=== PATIENT | female | born 1955 | race Caucasian/White ===

== ENCOUNTER 2024-06-17 10:47 | Outpatient (CLI) | payer MEDICARE, SELFPAY ==
[2024-06-17 11:46] LABS: Anion Gap 6 mmol/L (4-12); Blood Urea Nitrogen 13 mg/dL (7-17); Calcium 8.9 mg/dL (8.4-10.2); Carbon Dioxide 32 mmol/L (22-30); Chloride 102 mmol/L (98-107); Estimated Glomerular Filt Rate > 60; Glucose 173 mg/dL (65-110); Potassium 4.5 mmol/L (3.4-5.0); Sodium 140 mmol/L (137-145)
[2024-06-17 11:48] LABS: Prothrombin Time 31.9 Seconds (11.1-14.7)
[2024-06-17 11:49] LABS: Partial Thromboplastin Time 42.9 Seconds (22.3-36.8)
[2024-06-17 12:52] LABS: Digoxin 1.5 ng/mL (0.8-2.0)
== END 2024-06-17 10:48 | disposition home or self-care (01) ==
PROVIDERS: Anesthesiology; Visit Provider Urology
DX: Z51.81 Encounter for therapeutic drug level monitoring (principal); E11.9 Type 2 diabetes mellitus without complications; Z79.01 Long term (current) use of anticoagulants; R32 Unspecified urinary incontinence; Z01.818 Encounter for other preprocedural examination; Z79.899 Other long term (current) drug therapy
CPT/HCPCS: 36415; 80048; 80162; 85610; 85730; 87086

== ENCOUNTER 2024-06-26 03:02 | Day surgery (SDC) | payer MEDICARE, SELFPAY ==
--- NOTE | 2024-06-15 14:19 | PC.NURSE ---
Report to the Outpatient Waiting Room, entrance under the green pavilion located off [facility], at time __8:30 AM on date _06/26/24 . Planned Procedure Time: _10:30 AM .? Time changes happen often and if your time is changed the preop area will call you the afternoon before. - You and your visitor will be asked to self-screen and do not enter if you have any COVID symptoms. Please call surgeon if you need to reschedule. - A mask is optional within the hospital at this time. Patients may have clear liquids (water, carbonated beverages, clear teas, apple juice) until 3 hours prior to surgery (7:30 AM)with a maximum of 20 ounces. - No food from midnight until time of surgery and no smoking - Infants may have breast milk until 4 hours before surgery, formula 6 hours prior to surgery. - Children will be allowed to drink immediately following surgery.? If applicable, please bring a bottle or sippy cup to assist with drinking. Juice, water, soda, and popsicles are readily available.? For infants on formula, please bring formula the day of surgery.? Pacifiers are allowed. Take only the following medications with a SIP of water on the morning of surgery: __CITALOPRAM,DIGOXIN,EYE DROP,LEVOTHYROXINE, DO NOT STOP ANY OF YOUR OTHER PRESCRIPTION MEDICATIONS PRIOR TO SURGERY EXCEPT THE FOLLOWING Medications to discontinue per physician ___PT STATES HOLD WARFARIN 5 DAYS PRE OP PER DR SANDOVAL LAST DOSE 07/21/24 HOLD ALL VITAMINS AND SUPPLEMENT 7 DAYS PRE OP PER DR SINGH LAST DOSE 06/18/24 Please no make-up, nail croatian, hairspray, perfume, deodorant, or body powder the day of surgery.? No jewelry (including any body piercings) or valuables the day of surgery, leave them at home.? Please take a shower or bath the night before, or the morning of, surgery with an antibacterial soap.? Wear comfortable, loose fitting clothing.? Children are encouraged to wear pajamas. - Jewelry must be removed prior to entering the operating room.? Rings and piercings that are not removed may be cut off. - The hospital will not accept responsibility for valuables.? - Please leave all valuables, including medications, at home the day of surgery. If you are going home after surgery, a licensed lifter/driver must drive you home.? - NO public transportation without another adult if you receive anesthesia. - We recommend that an adult stay with you for 24 hours following discharge. - We also recommend that you do not drive, make important decision, drink alcoholic beverages, or take any drugs that were not prescribed by your health care provider for at least 24 hours after your discharge time. Follow any additional instructions given to you from your surgeon. Telephone instructions given to _PATIENT and asked if any additional questions and then verbalized understanding. Patient advised to call surgeon office or pre surgery nurse liaison [phone] if any additional questions.
[2024-06-15 14:37] VITALS: BMI 38.7
--- NOTE | 2024-06-20 16:03 | PM.IMHP ---
H&P: HPI History of Present Illness Date/Time: 06/20/24 16:03 Chief Complaint: ISD Narrative: mixed incontinence. Desires treatment for SILVIA 2/2 ISD Review of Systems Review of Systems: All systems reviewed & are unremarkable except as noted in HPI and below PMFSH Social History Social History Smoking packs per day: 2 Smoking cigarettes per day: 40.0 Years smoked: 25 Smoking pack-years: 50.00 Smoking status: Former smoker Tobacco type: cigarettes Smoking end date: 08/26/04 Living arrangements: with family Spiritual care concerns: No Meds Home Medications and Allergies Home Medications Medication Instructions Recorded Confirmed Type citalopram 20 mg tablet 20 mg PO QAM 06/15/24 06/15/24 History digoxin 250 mcg (0.25 mg) tablet 250 mcg PO DAILY 06/15/24 06/15/24 History dorzolamide 22.3 mg-timolol 6.8 1 drp RIGHT EYE BID 06/15/24 06/15/24 History mg/mL eye drops furosemide 20 mg tablet 30 mg PO DAILY 06/15/24 06/15/24 History insulin glargine 100 unit/mL (3 60 unit subcut HS 06/15/24 06/15/24 History mL) subcutaneous pen (Lantus Solostar U-100 Insulin) insulin lispro 100 unit/mL 24 unit subcut TID 06/15/24 06/15/24 History subcutaneous pen (Admelog SoloStar U-100 Insulin lispro) lactobacillus combination no.8 3 3 cell PO DAILY 06/15/24 06/15/24 History billion cell capsule levothyroxine 50 mcg tablet 50 mcg PO DAILY 06/15/24 06/15/24 History losartan 25 mg tablet 25 mg PO HS 06/15/24 06/15/24 History magnesium oxide 400 mg PO DAILY 06/15/24 06/15/24 History metoprolol succinate 50 mg 150 mg PO QPM 06/15/24 06/15/24 History tablet,extended release 24 hr multivitamin (Daily Multi-Vitamin 1 tablet PO DAILY 06/15/24 06/15/24 History tablet) pantoprazole 40 mg tablet,delayed 40 mg PO DAILY 06/15/24 06/15/24 History release potassium 99 mg tablet 99 mg PO DAILY 06/15/24 06/15/24 History potassium chloride 10 mEq 10 meq PO DAILY 06/15/24 06/15/24 History capsule,extended release rosuvastatin 10 mg tablet 10 mg PO DAILY 06/15/24 06/15/24 History valacyclovir 1 gram tablet 1,000 mg PO DAILY 06/15/24 06/15/24 History vibegron 75 mg tablet (Gemtesa) 75 mg PO DAILY 06/15/24 06/15/24 History vitamin A-vitamin C-vit E-min 1 tablet PO DAILY 06/15/24 06/15/24 History tablet warfarin 3 mg tablet 3.5 mg PO QPM 06/15/24 06/15/24 History Allergies Allergy/AdvReac Type Severity Reaction Status Date / Time hydroxychloroquine Allergy Severe Hives Verified 06/15/24 13:56 [From Plaquenil] ciprofloxacin [From Cipro] Allergy Hives Verified 06/15/24 13:55 cyclosporine [From Restasis] Allergy Other Verified 06/15/24 13:59 dulaglutide [From Trulicity] Allergy Diarrhea Verified 06/15/24 13:58 metformin Allergy Diarrhea Verified 06/15/24 13:58 minocycline Allergy Diarrhea Verified 06/15/24 13:58 Sulfa (Sulfonamide Allergy Hives Verified 06/15/24 13:55 Antibiotics) Exam Narrative: NAD A+O x3 normal breathing Assessment and Plan Assessment and plan (1) Intrinsic sphincter deficiency (ISD): Code(s): N36.42 - Intrinsic sphincter deficiency (ISD) Status: Acute Assessment and Plan: cysto/bulking agent
--- NOTE | 2024-06-26 04:48 | WPDHPUPDATE1 ---
History and Physical Update Update Date/Time: 06/26/24 04:48 History and Physical has been reviewed, including an updated exam of the patient. There are NO changes in the patient's condition. Risks, benefits, and alternatives have been discussed and questions answered. Patient agrees to proceed with procedure.
[2024-06-26 08:35] VITALS: BP 149/55; PULSE 55; RESP 18; TEMP 36.2; O2SAT 97
[2024-06-26 08:52] LABS: Glucose Point of Care 118 mg/dl (65-105)
[2024-06-26 09:10] VITALS: BMI 38.0
[2024-06-26] MEDS: LACTATED RINGERS 1,000 ML 30 ML IV CONT (09:11)
[2024-06-26 09:21] LABS: INR 1.3; Prothrombin Time 16.3 Seconds (11.1-14.7)
[2024-06-26 09:22] LABS: Partial Thromboplastin Time 31.5 Seconds (22.3-36.8)
--- NOTE | 2024-06-26 09:39 | WPDANESEPPF ---
Anes - Initial Pre Proc Eval Procedure: Operation Date: 06/26/24 10:30 Proposed Procedures p Cystoscopy, Injection Bulking Agent - Nicholas Cam MD Date/Time: 06/26/24 09:39 Surgeon: Nicholas Cam MD Pre Op Diagnosis: Type 2 diabetes mellitus without complications Patient Data Age: 69 Gender: F Height: 1.68 m Weight: 106.7 kg Last Vital Signs Temp 36.2 C L 06/26/24 08:35 Pulse 55 L 06/26/24 08:35 Resp 18 06/26/24 08:35 BP 149/55 H 06/26/24 08:35 Pulse Ox 97 06/26/24 08:35 Allergies Allergy/AdvReac Type Severity Reaction Status Date / Time hydroxychloroquine Allergy Severe Hives Verified 06/26/24 08:42 [From Plaquenil] ciprofloxacin [From Cipro] Allergy Hives Verified 06/26/24 08:42 cyclosporine [From Restasis] Allergy Other Verified 06/26/24 08:42 dulaglutide [From Trulicity] Allergy Diarrhea Verified 06/26/24 08:42 metformin Allergy Diarrhea Verified 06/26/24 08:42 minocycline Allergy Diarrhea Verified 06/26/24 08:42 Sulfa (Sulfonamide Allergy Hives Verified 06/26/24 08:42 Antibiotics) Home Medications Medication Instructions Recorded Confirmed Type citalopram 20 mg tablet 20 mg PO QAM 06/15/24 06/15/24 History digoxin 250 mcg (0.25 mg) tablet 250 mcg PO DAILY 06/15/24 06/15/24 History dorzolamide 22.3 mg-timolol 6.8 1 drp RIGHT EYE BID 06/15/24 06/15/24 History mg/mL eye drops furosemide 20 mg tablet 30 mg PO DAILY 06/15/24 06/15/24 History insulin glargine 100 unit/mL (3 60 unit subcut HS 06/15/24 06/15/24 History mL) subcutaneous pen (Lantus Solostar U-100 Insulin) insulin lispro 100 unit/mL 24 unit subcut TID 06/15/24 06/15/24 History subcutaneous pen (Admelog SoloStar U-100 Insulin lispro) lactobacillus combination no.8 3 3 cell PO DAILY 06/15/24 06/15/24 History billion cell capsule levothyroxine 50 mcg tablet 50 mcg PO DAILY 06/15/24 06/15/24 History losartan 25 mg tablet 25 mg PO HS 06/15/24 06/15/24 History magnesium oxide 400 mg PO DAILY 06/15/24 06/15/24 History metoprolol succinate 50 mg 150 mg PO QPM 06/15/24 06/15/24 History tablet,extended release 24 hr multivitamin (Daily Multi-Vitamin 1 tablet PO DAILY 06/15/24 06/15/24 History tablet) pantoprazole 40 mg tablet,delayed 40 mg PO DAILY 06/15/24 06/15/24 History release potassium 99 mg tablet 99 mg PO DAILY 06/15/24 06/15/24 History potassium chloride 10 mEq 10 meq PO DAILY 06/15/24 06/15/24 History capsule,extended release rosuvastatin 10 mg tablet 10 mg PO DAILY 06/15/24 06/15/24 History valacyclovir 1 gram tablet 1,000 mg PO DAILY 06/15/24 06/15/24 History vibegron 75 mg tablet (Gemtesa) 75 mg PO DAILY 06/15/24 06/15/24 History vitamin A-vitamin C-vit E-min 1 tablet PO DAILY 06/15/24 06/15/24 History tablet warfarin 3 mg tablet 3.5 mg PO QPM 06/15/24 06/15/24 History Laboratory Tests 06/26/24 06/26/24 08:50 08:54 PT 16.3 H Seconds (11.1-14.7) INR 1.3 APTT 31.5 Seconds (22.3-36.8) POC Capillary Glucose 118 H mg/dl (65-105) Patient hx anesthesia problems: none Family hx anesthesia problems: none Results Review: All pre-operative results and documents have been reviewed as part of the pre-operative evaluation. [facility] Past Medical History Medical History (Updated 06/26/24 @ 09:40 by Kevin Grimes MD) Diabetes RENZO (obstructive sleep apnea) Paroxysmal A-fib Social History Social History Smoking packs per day: 2 Smoking cigarettes per day: 40.0 Years smoked: 25 Smoking pack-years: 50.00 Smoking status: Former smoker Tobacco type: cigarettes Smoking end date: 08/26/04 Living arrangements: with family Spiritual care concerns: No Anes - Eval Final PreProcedure Day of Procedure 06/26/24 09:39 Patient weight: obese Heart: regular rate and rhythm Lungs: clear to auscultation Airway: Mallampati scale class II Neurological: alert and oriented Last oral intake: >/= 8 hours ASA classification: III Emergent: no Anesthetic plan: proceed Anesthesia type and monitoring: general GIVS and standard monitoring Results Review: All pre-operative results and documents have been reviewed as part of the pre-operative evaluation. Informed Consent: The patient's anesthetic plan and its attendant risks and benefits were discussed with the patient/family/POA. Questions were solicited and answers provided to the satisfaction of the patient/family/POA.
[2024-06-26] MEDS: ceFAZolin 2 GM/D5W 50 ML 2 GM/50 ML BAG IVPB (10:20)
[2024-06-26] MEDS: LIDOCAINE HCL 2% GEL UROJET 10 ML PKG MUCOUS MEM (10:37)
[2024-06-26 10:41] VITALS: BP 119/52; PULSE 56; RESP 14; O2SAT 100
--- NOTE | 2024-06-26 10:46 | W.PM.PROC2 ---
Procedure Note - Detailed Date of Procedure 06/26/24 Pre-op Diagnosis Intrinsic sphincter deficiency Post-op Diagnosis Same Procedure Performed Cystoscopy with suburethral injection of implant material Surgeon Nicholas Cam MD Anesthesia MAC and Local (Uro jet) Findings Open urethra consistent with intrinsic sphincter deficiency Description of Procedure She was correctly identified. Informed consent obtained. She was from the operating room. She was given monitored anesthesia care. Uro jet was applied. She was prepped draped sterile fashion. Time-out performed. She was given appropriate perioperative antibiotics. Cystoscopy revealed normal-appearing bladder without abnormalities. No tumors or stones foreign bodies. Urethra is open consistent with intrinsic sphincter deficiency. I chose a site in the mid urethra 2 cm distal bladder neck. I injected bulking agent circumferentially. I used 2 total syringes. There was appropriate bulking effect. Her bladder was left partially full. She was awakened transferred to PACU in stable condition. Estimated Blood Loss 0 Drains No Packing No Pathology None sent Complications No immediate complications Condition Stable Disposition PACU
[2024-06-26 10:51] LABS: Glucose Point of Care 101 mg/dl (65-105)
[2024-06-26 11:00] VITALS: BP 151/62; PULSE 52; RESP 14; O2SAT 100
[2024-06-26 11:30] VITALS: BP 158/62; PULSE 52; RESP 14
[2024-06-26 12:00] VITALS: BP 151/66; PULSE 52; RESP 14
== END 2024-06-26 12:15 | disposition home or self-care (01) ==
PROVIDERS: Anesthesiology; Visit Provider Urology
PROC: 3E0K8GC Introduction of Other Therapeutic Substance into Genitourinary Tract, Via Natural or Artificial Opening Endoscopic (ICD-10-PCS; CPT 51715; principal; 2024-06-26 10:30)
DX: N36.42 Intrinsic sphincter deficiency (ISD) (principal); N39.46 Mixed incontinence; E11.9 Type 2 diabetes mellitus without complications; G47.33 Obstructive sleep apnea (adult) (pediatric); I48.0 Paroxysmal atrial fibrillation; E66.9 Obesity, unspecified; Z68.38 Body mass index [BMI] 38.0-38.9, adult; Z79.4 Long term (current) use of insulin; Z79.01 Long term (current) use of anticoagulants; Z87.891 Personal history of nicotine dependence
CPT/HCPCS: 51715; 36415; 82948; 85610; 85730; J0690; J2003; J2250; J2704; J3010; J7120; L8606